=== PATIENT | female | born 1960 | race Caucasian/White ===

== ENCOUNTER 2017-02-01 11:02 | Inpatient (IN) | payer BC ==
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
--- NOTE | ~2017-02-01 | CN ---
Consultation Report [facility] [address] [place]. [address] NAME: JUAN F ALMEIDA : 58 STATUS : ADM IN PAT#: [id number] AGE: 57 ADM/REG DATE : 02/01/17 MR#: [id number] REPORT SERV DATE: 02/02/17 DICTATED BY: SAJNAY STOKES JR. DATE: 02/02/17 REPORT STATUS : Draft TRANSCRIBED BY: MINH DATE: 02/02/17 CONSULT NOTE DATE OF CONSULTATION: 02/02/2017 CHIEF COMPLAINT: Right UPJ stone and obstruction. HISTORY OF PRESENT ILLNESS: Ms. Almeida is a very pleasant, 57-year-old, white female who was admitted yesterday with a chief complaint of shortness of breath, abdominal pain, migraine, knee pain, fatigue, nausea, fever, chills, and sweats. She has a history of kidney stones being treated by Dr. Hendricks at [facility]. She recently had lithotripsy for a right renal stone. On CT scan, in the emergency room, she was found to have a 4-5 mm UPJ stone on the right with significant hydronephrosis and what appears to be some pyelonephritis. She had some fever at home, but is then afebrile here. Her white blood cell count has been normal. She was initially hypotensive relatively, but she responded to 2 L fluid bolus and now is normotensive. PAST MEDICAL HISTORY: Significant for pulmonary embolism. She has been on Eliquis until last week when it was stopped with Dr. Shirley. She has a history of migraine headaches, restless legs syndrome, PTSD, peptic ulcer, and endometriosis. HOME MEDICATIONS: Now include: Aspirin, Lipitor, Klonopin, Pristiq, Trulicity, Percocet, Minipress, Seroquel, and Requip. PAST SURGICAL HISTORY: Left breast lumpectomy, kidney stones in the past. There was a recent ESWL as mentioned above, endometriosis procedures, hyoidectomy, deviated septal repair, adenoidectomy and a . SOCIAL HISTORY: She does not smoke cigarettes. She does not drink alcohol or use illicit drugs. FAMILY HISTORY: Significant for hyperlipidemia and dementia. Father with end-stage heart disease. Sister with sarcoma. Brother with avascular necrosis of the hip. PHYSICAL EXAMINATION: GENERAL: She is a well-nourished, well-developed female, in no acute distress currently. HEENT: Normocephalic, atraumatic. NECK: Symmetric. CHEST: Clear to auscultation bilaterally. HEART: Regular rate and rhythm. ABDOMEN: Soft, nontender, nondistended without palpable hernias. GENITOURINARY: Exam was deferred. LABORATORY: Electrolytes within normal limits, BUN of 9, creatinine 0.97. White blood cell Consultation Report [address] [address] NAME: JUAN F ALMEIDA : 58 STATUS : ADM IN [facility]#: [id number] AGE: 57 ADM/REG DATE : 02/01/17 MR#: [id number] REPORT SERV DATE: 02/02/17 DICTATED BY: SANJAY STOKES JR. DATE: 02/02/17 REPORT STATUS : Draft TRANSCRIBED BY: MINH DATE: 02/02/17 count of 10.8, hemoglobin 12. PT is 17.5, INR 1.5, PTT of 38.6. CT scan as per the above. ASSESSMENT: Right UPJ stone with hydronephrosis with possible pyelonephritis. She is on cefepime currently, which we will continue and I will plan cystoscopy, retrograde pyelogram, and double-J stenting today with delayed treatment of her stone with Dr. Hendricks when she recovers from her present bacteremia. [facility]/MINH Sanjay Stokes Jr., M.D. / [id number] CC: Agus Campoverde M.D.
--- NOTE | ~2017-02-01 | OP ---
Record Of Operation [facility] [address] [place]. [address] NAME: JUAN F ALMEIDA : 58 STATUS : ADM IN [facility]#: [id number] AGE: 57 ADM/REG DATE : 02/01/17 MR#: [id number] REPORT SERV DATE: 02/02/17 DICTATED BY: SANJAY STOKES JR. DATE: 02/02/17 REPORT STATUS : Draft TRANSCRIBED BY: MODDavida DATE: 02/02/17 DATE OF PROCEDURE: 02/02/2017 SURGEON: Sanjay Stokes M.D. PREOPERATIVE DIAGNOSIS: Right UPJ stone with obstruction. POSTOPERATIVE DIAGNOSIS: Right UPJ stone with obstruction. PROCEDURE PERFORMED: Cystoscopy, right retrograde pyelogram, placement of right double-J stent. COMPLICATIONS: None. CONSULTATIONS: None. ANESTHESIA: General with laryngeal mask airway. SPECIMENS: None. DRAINS: 6 x 26 cm double-J stent. ESTIMATED BLOOD LOSS: None. INDICATION: Ms. Almeida is a 57-year-old female who was admitted with bacteremia secondary to an obstructing right renal stone with pyelonephritis and suspected pyonephrosis. She comes for a cysto and double-J stent placement for relief of the obstruction of her right renal unit. PROCEDURE IN DETAIL: After the patient was identified and proper informed consent was obtained, she was taken to the operating room. General anesthesia was performed without complication using a laryngeal mask airway. She was prepped and draped in a normal sterile fashion in the lithotomy position. Cystoscopic examination of the urethra and bladder were found to be normal. The right ureteral orifice was identified and cannulated with a 5- Swiss open-ended catheter. Retrograde pyelogram reveals a normal caliber and course to the ureter up to the UPJ with a 5 mm filling defect consistent with CT scan findings of a 5 mm UPJ stone. There was some mild hydronephrosis above the stone. A guidewire was advanced through the open-ended catheter around the stone into the renal pelvis and a 6 x 26 cm double-J stent was deployed with a nice curl in both the bladder and the kidney without difficulties. The bladder was drained with a 16-Swiss Powers catheter. The patient was awakened in the operating room, transferred to the Postanesthesia Care Unit in stable condition. We will plan delayed stone treatment with either ESWL or ureteroscopy in the next 10-14 days. Record Of Operation [facility] [address] [place]. [address] NAME: JUAN F ALMEIDA : 58 STATUS : ADM IN PAT#: [id number] AGE: 57 ADM/REG DATE : 02/01/17 MR#: [id number] REPORT SERV DATE: 02/02/17 DICTATED BY: SANJAY SOTKES JR. DATE: 02/02/17 REPORT STATUS : Draft TRANSCRIBED BY: MINH DATE: 02/02/17 [place]/[facility] Sanjay Stokes Jr., M.D. / [id number] CC: Agus Campoverde M.D.
--- NOTE | ~2017-02-01 | DS ---
Discharge Summary [place] [id number] [facility] [place]. [address] NAME: JUAN F ALMEIDA : 58 STATUS : ADM IN [facility]#: [id number] AGE: 57 ADM/REG DATE : 02/01/17 MR#: [id number] REPORT SERV DATE: 02/04/17 DICTATED BY: Agus CAMPOVERDE DATE: 02/04/17 REPORT STATUS : Draft TRANSCRIBED BY: MODDavida DATE: 02/04/17 ADMISSION DATE: 02/01/2017 DISCHARGE DATE: 02/04/2017 DIAGNOSES AT DISCHARGE: 1. Sepsis, present on admission. 2. Pyelonephritis, present on admission. 3. Right ureter stone, status post cystoscopy and stent placement. CONSULT: Urology. PROCEDURE: Cystoscopy with stent placement, right ureter. BRIEF HOSPITAL COURSE: 57-year-old female patient with history of renal stones, recently seen at [place] and underwent lithotripsy, was readmitted with sepsis syndrome, persistent stone in the right ureter with obstruction and pyelonephritis associated to that obstruction. The patient was treated with broad-spectrum antimicrobial therapy, pain control, and aggressive IV fluids. Seen by Urology, taken for cystoscopy and stent placement with significant improvement in her clinical picture. Her subsequent urine culture did grow Enterococcus sensitive to penicillin. Her antibiotics were downgraded to oral amoxicillin. The patient was felt stable to discharge home on 02/04 with plans to follow up with Urology in 7 to 10 days after she completes her antimicrobial therapy with plans for either repeat lithotripsy on the stone versus ureteroscopy for stone removal at a later date. She will follow up with Dr. Sanjay Stokes in approximately seven days as mentioned above. She will continue her current home medications per med reconciliation form with the addition of amoxicillin 500 mg three times a day. This is for eight additional days, which will complete a 10-day course. [facility] Agus Campoverde M.D. / [id number] CC: Agus Campoverde M.D.
[2017-02-01 10:28] LABS: BASOPHILS 0.2 %; BASOPHILS ABSOLUTE 0.02 10/3/uL (0.0-0.16); EOSINOPHILS 0.1 %; EOSINOPHILS ABSOLUTE 0.01 10/3/uL (0.0-0.53); ER CBC TAT 0 Hrs 03 Mins; HEMATOCRIT 35.8 % (36.0-48.0); IMMATURE GRANULOCYTES 0.1 %; IMMATURE GRANULOCYTES ABSOLUTE 0.01 10/3/uL (0.0-0.11); LYMPHOCYTES 15.7 %; LYMPHOCYTES ABSOLUTE 1.69 10/3/uL (0.67-4.30); MEAN CORPUS HGB CONC 33.5 g/dL (32.0-36.0); MEAN CORPUSCULAR HEMOGLOB 27.8 pg (26.0-34.0); MEAN CORPUSCULAR VOLUME 83.1 fL (80-100); MEAN PLATELET VOLUME 9.5 fL (9.2-13.0); MONOCYTES 10.7 %; MONOCYTES ABSOLUTE 1.15 10/3/uL (0.21-1.20); NEUTROPHILS 73.2 %; NEUTROPHILS ABSOLUTE 7.88 10/3/uL (2.02-8.40); PLATELET COUNT 168 10/3/uL (150-400); RBC DISTRIBUTION WIDTH 13.9 % (12.0-16.0); RED CELL COUNT 4.31 10/6/uL (4.0-5.6); WHITE BLOOD CELLS 10.8 10/3/uL (4.5-10.5)
[2017-02-01 10:37] LABS: INTERNATIONAL NORMAL RATI 1.5 UNITS (-); PARTIAL THROMBO TIME 38.6 SEC (22.5-37.2); PROTIME (NOT ORD) 17.5 SEC (12.0-14.5)
[2017-02-01 10:45] LABS: BUN (BLOOD UREA NITROGEN) 9 MG/DL (6-23); CALCIUM, SERUM 9.6 MG/DL (8.5-10.4); CHEST PAIN PROFILE TAT 0 Hrs 20 Mins; CHLORIDE, SERUM 107 MMOL/L (96-112); CO2 (CARBON DIOXIDE) 26 MMOL/L (24-34); CREATININE 0.97 MG/DL (0.55-1.02); GFR AFRICAN AMERICAN 75 ML/MIN (>=60); GFR NON AFRICAN AMERICAN 64 ML/MIN (>=60); GLUCOSE, SERUM 155 MG/DL (60-99); POTASSIUM, SERUM 4.1 MMOL/L (3.5-5.3); SODIUM, SERUM 141 MMOL/L (135-148); TROPONIN I <0.02 NG/ML (<0.05)
[2017-02-01 14:52] LABS: ASCORBIC ACID (UR NOT ORDER) NEG (NEG); BILIRUBIN, URINE NEGATIVE (NEG); ER URINALYSIS TAT 0 Hrs 27 Mins; KETONE, URINE TRACE MG/DL (NEG); LEUKOCYTE ESTERASE(NOT OR SMALL (NEG); NITRITE (URINE) NEG (NEG); WBC (NOT ORDERED) (RFLEX) 23 (0-5)
[2017-02-01] MEDS ORDERED: LIPITOR10 PO (17:23)
[2017-02-01] MEDS ORDERED: MINIPRESS 1 MG C1 MG PO (17:24)
[2017-02-01] MEDS ORDERED: KLONO5 PO ×2 (17:24)
[2017-02-01] MEDS ORDERED: PRISTIQ100 MG PO (17:25)
[2017-02-01] MEDS ORDERED: REQUIP5 PO (17:25)
[2017-02-01] MEDS ORDERED: TRULICITY1.5 MG/0.5 SQ (17:26)
[2017-02-01] MEDS ORDERED: SEROQUEL25 PO (17:26)
[2017-02-01] MEDS ORDERED: [UNRECOGNIZED DRUG - OTHER] PO (17:28)
[2017-02-01] MEDS ORDERED: ASAB PO (17:28)
[2017-02-01] MEDS ORDERED: ENDOCET1 TAB PO (17:31)
[2017-02-01 22:57] LABS: B NATRIURETIC PEPTIDE (BNP) 29.6 PG/ML (< 100.0)
[2017-02-02 04:36] LABS: BASOPHILS 0.1 %; BASOPHILS ABSOLUTE 0.01 10/3/uL (0.0-0.16); EOSINOPHILS 0.5 %; EOSINOPHILS ABSOLUTE 0.04 10/3/uL (0.0-0.53); HEMATOCRIT 34.6 % (36.0-48.0); HEMOGLOBIN 11.4 g/dL (12.0-16.0); IMMATURE GRANULOCYTES 0.1 %; IMMATURE GRANULOCYTES ABSOLUTE 0.01 10/3/uL (0.0-0.11); LYMPHOCYTES 20.3 %; MEAN CORPUS HGB CONC 32.9 g/dL (32.0-36.0); MEAN CORPUSCULAR HEMOGLOB 27.7 pg (26.0-34.0); MEAN PLATELET VOLUME 10.3 fL (9.2-13.0); MONOCYTES 14.5 %; MONOCYTES ABSOLUTE 1.21 10/3/uL (0.21-1.20); NEUTROPHILS 64.5 %; PLATELET COUNT 144 10/3/uL (150-400); RBC DISTRIBUTION WIDTH 14.1 % (12.0-16.0); RED CELL COUNT 4.12 10/6/uL (4.0-5.6); WHITE BLOOD CELLS 8.4 10/3/uL (4.5-10.5)
[2017-02-02 04:38] LABS: INTERNATIONAL NORMAL RATI 1.5 UNITS (-); PARTIAL THROMBO TIME 33.1 SEC (22.5-37.2); PROTIME (NOT ORD) 17.6 SEC (12.0-14.5)
[2017-02-02 04:39] LABS: MANUAL DIFF NO %
[2017-02-02 04:53] LABS: BUN (BLOOD UREA NITROGEN) 6 MG/DL (6-23); CHLORIDE, SERUM 111 MMOL/L (96-112); CO2 (CARBON DIOXIDE) 22 MMOL/L (24-34); CREATININE 0.62 MG/DL (0.55-1.02); GFR AFRICAN AMERICAN 115 ML/MIN (>=60); GFR NON AFRICAN AMERICAN 99 ML/MIN (>=60); PHOSPHORUS, SERUM 2.3 MG/DL (2.5-4.5); POTASSIUM, SERUM 3.4 MMOL/L (3.5-5.3); SODIUM, SERUM 145 MMOL/L (135-148)
[2017-02-02 04:56] LABS: GLUCOSE, SERUM 94 MG/DL (60-99)
[2017-02-03 04:55] LABS: BASOPHILS 0 %; EOSINOPHILS 0.2 %; EOSINOPHILS ABSOLUTE 0.01 10/3/uL (0.0-0.53); HEMATOCRIT 32.6 % (36.0-48.0); IMMATURE GRANULOCYTES 0.2 %; IMMATURE GRANULOCYTES ABSOLUTE 0.01 10/3/uL (0.0-0.11); LYMPHOCYTES ABSOLUTE 0.71 10/3/uL (0.67-4.30); MEAN CORPUS HGB CONC 33.7 g/dL (32.0-36.0); MEAN CORPUSCULAR HEMOGLOB 28.1 pg (26.0-34.0); MEAN CORPUSCULAR VOLUME 83.4 fL (80-100); MEAN PLATELET VOLUME 10.2 fL (9.2-13.0); MONOCYTES 6.3 %; MONOCYTES ABSOLUTE 0.32 10/3/uL (0.21-1.20); NEUTROPHILS 79.3 %; NEUTROPHILS ABSOLUTE 4.02 10/3/uL (2.02-8.40); PLATELET COUNT 174 10/3/uL (150-400); RBC DISTRIBUTION WIDTH 14.1 % (12.0-16.0); RED CELL COUNT 3.91 10/6/uL (4.0-5.6); WHITE BLOOD CELLS 5.1 10/3/uL (4.5-10.5)
[2017-02-03 05:01] LABS: BUN (BLOOD UREA NITROGEN) 9 MG/DL (6-23); CALCIUM, SERUM 9.3 MG/DL (8.5-10.4); CHLORIDE, SERUM 115 MMOL/L (96-112); CO2 (CARBON DIOXIDE) 25 MMOL/L (24-34); CREATININE 0.64 MG/DL (0.55-1.02); GFR AFRICAN AMERICAN 114 ML/MIN (>=60); GFR NON AFRICAN AMERICAN 98 ML/MIN (>=60); POTASSIUM, SERUM 4.2 MMOL/L (3.5-5.3); SODIUM, SERUM 146 MMOL/L (135-148)
[2017-02-03 05:02] LABS: GLUCOSE, SERUM 161 MG/DL (60-99)
[2017-02-03 05:03] LABS: MANUAL DIFF NO %
[2017-02-04 04:46] LABS: BUN (BLOOD UREA NITROGEN) 10 MG/DL (6-23); CALCIUM, SERUM 8.9 MG/DL (8.5-10.4); CHLORIDE, SERUM 113 MMOL/L (96-112); CO2 (CARBON DIOXIDE) 26 MMOL/L (24-34); CREATININE 0.51 MG/DL (0.55-1.02); GFR AFRICAN AMERICAN 123 ML/MIN (>=60); GFR NON AFRICAN AMERICAN 106 ML/MIN (>=60); SODIUM, SERUM 148 MMOL/L (135-148)
[2017-02-04 04:47] LABS: GLUCOSE, SERUM 96 MG/DL (60-99); POTASSIUM, SERUM 3.2 MMOL/L (3.5-5.3)
[2017-02-04] MEDS ORDERED: AMOXIL500 MG PO (12:33)
[2017-02-10] MEDS ORDERED: PERCOCET 10/3251 TAB PO (13:49)
[2017-06-24] MEDS ORDERED: CALCIUM PO (11:31)
[2017-06-24] MEDS ORDERED: CALTRA600D PO (11:32)
[2017-06-24] MEDS ORDERED: KLONO1 PO (16:25)
[2017-06-24] MEDS ORDERED: DEPLIN-ALGAL O1 EAC1 PO (16:27)
[2017-06-24] MEDS ORDERED: ADDER10 PO (16:28)
[2017-06-24] MEDS ORDERED: [UNRECOGNIZED DRUG - OTHER] PO (16:29)
[2017-06-24] MEDS ORDERED: GLUCOSAMINEPO PO (16:30)
[2017-06-24] MEDS ORDERED: CHONDROITIN PO (16:30)
[2017-06-24] MEDS ORDERED: CO Q-10100 MG PO (16:30)
[2017-06-24] MEDS ORDERED: NEUR100 PO (16:32)
[2017-06-24] MEDS ORDERED: TRINTELLIX20 MG PO (16:55)
== END 2017-02-04 13:44 | disposition home or self-care (01) | DRG 872 ==
LOC: ER 11:02 → IMCU 20:13
PROVIDERS: Hospitalist; Internal Medicine; Nurse Practitioner; Urology
PROC: 02HV33Z Insertion of Infusion Device into Superior Vena Cava, Percutaneous Approach (ICD-10-PCS; 2017-02-01)
PROC: 4A02X4A Measurement of Cardiac Electrical Activity, Guidance, External Approach (ICD-10-PCS; 2017-02-01)
PROC: BT1DZZZ Fluoroscopy of Right Kidney, Ureter and Bladder (ICD-10-PCS; 2017-02-02)
PROC: 0T768DZ Dilation of Right Ureter with Intraluminal Device, Via Natural or Artificial Opening Endoscopic (ICD-10-PCS; principal; 2017-02-02 15:45)
DX: A41.9 Sepsis, unspecified organism (principal); N13.6 Pyonephrosis; G25.81 Restless legs syndrome; F43.10 Post-traumatic stress disorder, unspecified; R73.02 Impaired glucose tolerance (oral); G47.33 Obstructive sleep apnea (adult) (pediatric); E66.9 Obesity, unspecified; Z68.36 Body mass index [BMI] 36.0-36.9, adult; Z86.711 Personal history of pulmonary embolism; Z88.2 Allergy status to sulfonamides; Z79.82 Long term (current) use of aspirin; Z85.3 Personal history of malignant neoplasm of breast
CPT/HCPCS: 36569; 71275; 74176; 74420; 80048; 81001; 82530; 82533; 82962; 83036; 83605; 83735; 83880; 84100; 84132; 84145; 84484; 85025; 85610; 85730; 87040; 87077; 87086; 87186; 87449; 87641; 93005; 99285; A9270-GY; C1751; C1758; C1769; C2617; J0692; J2250; J2405; J3010; Q9967

== ENCOUNTER 2017-02-16 11:51 | Day surgery (SDC) | payer BC ==
--- NOTE | ~2017-02-16 | OP ---
Record Of Operation [facility] [address] [place]. [address] NAME: JUAN F ALMEIDA : 58 STATUS : [facility]#: [id number] AGE: 57 ADM/REG DATE : 02/16/17 MR#: [id number] REPORT SERV DATE: 02/16/17 DICTATED BY: SANJAY STOKES JR. DATE: 02/16/17 REPORT STATUS : Draft TRANSCRIBED BY: MODDavida DATE: 02/16/17 DATE OF PROCEDURE: 02/16/2017 SURGEON: Sanjay Stokes M.D. PREOPERATIVE DIAGNOSIS: Right ureteral and right renal stones. POSTOPERATIVE DIAGNOSIS: Right ureteral and right renal stones. PROCEDURES PERFORMED: Cystoscopy, right retrograde pyelogram, removal of right double-J stent, right ureteroscopy with laser ablation of multiple renal and ureteral stones, removal of stone fragments, double-J stent placement. COMPLICATIONS: None. CONSULTATIONS: None. ANESTHESIA: General with an endotracheal tube. SPECIMENS: Stone fragments. DRAINS: A 6 x 26 cm double-J stent. ESTIMATED BLOOD LOSS: None. INDICATION: Mrs. Almeida is a 57-year-old female who has a history of nephrolithiasis. She had a double-J stent placed for obstructive uropathy. She comes back today after treatment of bacteremia and sepsis of urinary origin for stone manipulation. PROCEDURE IN DETAIL: After the patient was identified and proper informed consent was obtained, she was taken to the operating room. General anesthesia was performed without complication using an endotracheal tube. She was then prepped and draped in the normal sterile fashion in the lithotomy position. Cystoscopic examination of the urethra and bladder were performed. The urethra and bladder were found to be normal. The stent was identified coming from the right ureteral orifice. It was removed using a grasping forceps and a retrograde pyelogram was performed. She had somewhat edematous appearance to the ureter, but no hydronephrosis at this point. A guidewire was advanced through the open- ended catheter up to the level of the kidney and the flexible ureteroscope was advanced into the distal ureter. Several stones in the ureter were identified, most of them were removed using a Nitinol basket, one had to be fragmented into three pieces and that was then removed using the same Nitinol basket. I then worked my way up to the kidney, and once all ureteral stones had been removed, I identified three different calices that had several 4 to 7 mm stones present. All of the stones were fragmented into very small pieces using the dusting setting on the Holmium laser fiber. Once I was satisfied that all stone pieces have been fragmented adequately, I removed the ureteroscope and placed a 6 x 26 cm double-J stent with the string. The bladder was drained. The patient was awakened in the operating room and Record Of Operation [address] [place]. [address] NAME: JUAN F ALMEIDA : 58 STATUS : [facility] PAT#: [id number] AGE: 57 ADM/REG DATE : 02/16/17 MR#: [id number] REPORT SERV DATE: 02/16/17 DICTATED BY: SANJAY STOKES JR. DATE: 02/16/17 REPORT STATUS : Draft TRANSCRIBED BY: MINH DATE: 02/16/17 transferred to the postanesthesia care unit in stable condition. She will see my nurse on Wednesday for catheter removal, then I will see her back in four to six weeks for stone analysis results. KRY[facility]/MINH Sanjay Stokes Jr., M.D. / [id number] CC: Xavier Quevedo Jr., CHELSEY
[~2017-02-16 11:51] MED LIST: AMOXIL500 MG PO; ASAB PO; ENDOCET1 TAB PO; KLONO5 PO; LIPITOR10 PO; MINIPRESS 1 MG C1 MG PO; PERCOCET 10/3251 TAB PO; PRISTIQ100 MG PO; REQUIP5 PO; SEROQUEL25 PO; TRULICITY1.5 MG/0.5 SQ; [UNRECOGNIZED DRUG - OTHER] PO
[2017-02-22 12:52] LABS: STONE COMPOSITION TWO DNR (())
[2017-06-24] MEDS ORDERED: CALCIUM PO (11:31)
[2017-06-24] MEDS ORDERED: CALTRA600D PO (11:32)
[2017-06-24] MEDS ORDERED: KLONO1 PO (16:25)
[2017-06-24] MEDS ORDERED: DEPLIN-ALGAL O1 EAC1 PO (16:27)
[2017-06-24] MEDS ORDERED: ADDER10 PO (16:28)
[2017-06-24] MEDS ORDERED: [UNRECOGNIZED DRUG - OTHER] PO (16:29)
[2017-06-24] MEDS ORDERED: CHONDROITIN PO (16:30)
[2017-06-24] MEDS ORDERED: GLUCOSAMINEPO PO (16:30)
[2017-06-24] MEDS ORDERED: CO Q-10100 MG PO (16:30)
[2017-06-24] MEDS ORDERED: NEUR100 PO (16:32)
[2017-06-24] MEDS ORDERED: TRINTELLIX20 MG PO (16:55)
== END 2017-02-16 18:05 | disposition home or self-care (01) ==
LOC: SDC 11:51
PROVIDERS: Urology
PROC: 0T768DZ Dilation of Right Ureter with Intraluminal Device, Via Natural or Artificial Opening Endoscopic (ICD-10-PCS; 2017-02-16)
PROC: 0TF68ZZ Fragmentation in Right Ureter, Via Natural or Artificial Opening Endoscopic (ICD-10-PCS; principal; 2017-02-16 13:45)
DX: N20.2 Calculus of kidney with calculus of ureter (principal); G47.33 Obstructive sleep apnea (adult) (pediatric); G43.909 Migraine, unspecified, not intractable, without status migrainosus; E78.00 Pure hypercholesterolemia, unspecified; M19.90 Unspecified osteoarthritis, unspecified site; Z88.2 Allergy status to sulfonamides; Z88.8 Allergy status to other drugs, medicaments and biological substances; Z99.81 Dependence on supplemental oxygen; Z98.890 Other specified postprocedural states
CPT/HCPCS: 74420; 82365; A9270-GY; C1758; C1769; C2617; J2250; J2405; J2710; J3010; Q9967